=== PATIENT | male | born 1975 | race Caucasian/White ===

== ENCOUNTER → 2020-10-01 | Outpatient (CLI) | payer BC, OTHER ==
[~2020-10-01] MED LIST: BACTRIM DS TAB1 EACH PO; BACTROBAN CREAM15 GM TOP; CLEOCIN HCL300 MG PO; ECOTRIN81 MG PO; GLUCOPHAGE1000 MG PO; JANUVIA50 MG PO; LOPRESSOR 25 MG25 MG PO; PRINIVIL10 MG PO; TRESIBA FL100 UNIT/1 SQ; TRICOR145 MG PO
[2020-10-01 10:54] LABS: HEMOGLOBIN 16.4 gm/dl (14.0-17.5); RED BLOOD COUNT 5.78 M/UL (4.20-5.50); WHITE BLOOD COUNT 9.8 K/UL (4.5-11.0)
[2020-10-01 11:25] LABS: BUN/CREATININE RATIO 20 (0-10)
[2020-10-02 10:12] LABS: CREATININE, URINE 68.9 mg/dL (Not Estab.)
== END ==
LOC: LAB 08:53
PROVIDERS: Family Medicine
DX: E11.65 Type 2 diabetes mellitus with hyperglycemia (principal); E78.2 Mixed hyperlipidemia
CPT/HCPCS: 80053; 80061; 82043; 82570; 85027

== ENCOUNTER → 2020-11-10 | Outpatient (CLI) | payer BC, OTHER | LOC: EXRD 11-02 09:45 | DX: R79.89 Other specified abnormal findings of blood chemistry (principal); I10 Essential (primary) hypertension; E78.2 Mixed hyperlipidemia; E11.65 Type 2 diabetes mellitus with hyperglycemia; K82.4 Cholesterolosis of gallbladder; K76.0 Fatty (change of) liver, not elsewhere classified | CPT/HCPCS: 76700 ==

== ENCOUNTER 2021-04-21 15:12 | Observation (INO) | payer OTHER ==
[~2021-04-21] VITALS: Ht 175.3 cm; Wt 105.2 kg
[~2021-04-21 15:12] MED LIST changes: -PRINIVIL10 MG PO; +PRINIVIL20 MG PO
[2021-04-21 17:01] LABS: RED BLOOD COUNT 5.72 M/UL (4.20-5.50); WHITE BLOOD COUNT 11.1 K/UL (4.5-11.0)
[2021-04-21 17:32] LABS: BUN/CREATININE RATIO 18 (0-10)
[2021-04-22] MEDS ORDERED: ASPIRIN EC81 MG PO (02:07)
[2021-04-22] MEDS ORDERED: GLUCOPHAGE 500500 MG PO (02:07)
[2021-04-22] MEDS ORDERED: JARDIANCE10 MG PO (02:07)
[2021-04-22] MEDS ORDERED: VASCEPA1 GM PO (02:09)
[2021-04-22] MEDS ORDERED: ELIQUIS5 MG PO (12:15)
[2021-04-22] MEDS ORDERED: ELIQUIS 2.5 MG2.5 MG PO (12:15)
[2021-04-22] MEDS ORDERED: ELIQUIS 5 MG TAB5 MG PO (12:20)
[2021-04-22] MEDS ORDERED: TOUJEO MAX300 UNIT/1 SQ (16:49)
[2021-04-22] MEDS ORDERED: HUMALOG 10100 UNITS/ SC (18:00)
[2021-04-22] MEDS ORDERED: DEX4 GLUCOSE4 GM PO (18:00)
== END 2021-04-22 18:30 | disposition home or self-care (01) ==
LOC: ER1 15:12 → M/S 23:35 → CDU 23:35 → M/S 23:35
PROVIDERS: Physician Assistant; ADMIT Internal Medicine
DX: S00.83XA Contusion of other part of head, initial encounter (principal); I82.431 Acute embolism and thrombosis of right popliteal vein; I82.441 Acute embolism and thrombosis of right tibial vein; V49.60XA Unspecified car occupant injured in collision with unspecified motor vehicles in traffic accident, initial encounter; I26.99 Other pulmonary embolism without acute cor pulmonale; E11.65 Type 2 diabetes mellitus with hyperglycemia; R60.0 Localized edema; Z79.82 Long term (current) use of aspirin; Z20.822 Contact with and (suspected) exposure to COVID-19; E78.5 Hyperlipidemia, unspecified; Z79.84 Long term (current) use of oral hypoglycemic drugs; Z79.01 Long term (current) use of anticoagulants; Z88.5 Allergy status to narcotic agent; Z88.6 Allergy status to analgesic agent; I11.9 Hypertensive heart disease without heart failure; I07.1 Rheumatic tricuspid insufficiency
CPT/HCPCS: ECHO; 36415; 70450; 71260; 80053; 82550; 82553; 82962; 83036; 83874; 83880; 84484; 85025; 85610; 85730; 93005; 93306; 93970; G0378; J1644; Q9967; U0002

== ENCOUNTER → 2021-05-29 | Outpatient (CLI) | payer OTHER, BC ==
[~2021-05-29] MED LIST changes: +ASPIRIN EC81 MG PO; +DEX4 GLUCOSE4 GM PO; +ELIQUIS 2.5 MG2.5 MG PO; +ELIQUIS 5 MG TAB5 MG PO; +ELIQUIS5 MG PO; +GLUCOPHAGE 500500 MG PO; +HUMALOG 10100 UNITS/ SC; +JARDIANCE10 MG PO; +TOUJEO MAX300 UNIT/1 SQ; +VASCEPA1 GM PO
[2021-05-29 10:03] LABS: BUN/CREATININE RATIO 27 (0-10)
[2021-05-30 07:12] LABS: HBSAG SCREEN Negative (Negative); HEP A AB, IGM Negative (Negative); HEP B CORE AB, IGM Negative (Negative); HEP C VIRUS AB <0.1 (0.0-0.9)
[2021-05-30 14:14] LABS: MITOCHONDRIAL (M2) ANTIBODY <20.0 Units (0.0-20.0)
== END ==
LOC: LAB 08:20
PROVIDERS: Family Medicine
DX: I10 Essential (primary) hypertension (principal); M54.6 Pain in thoracic spine; R79.89 Other specified abnormal findings of blood chemistry; E78.2 Mixed hyperlipidemia; E11.9 Type 2 diabetes mellitus without complications; V89.2XXA Person injured in unspecified motor-vehicle accident, traffic, initial encounter; Z79.4 Long term (current) use of insulin
CPT/HCPCS: 36415; 72072; 80053; 80074; 82728; 83540; 83550

== ENCOUNTER → 2021-09-25 | Outpatient (CLI) | payer BC ==
[2021-09-25 09:50] LABS: HEMOGLOBIN 14.9 gm/dl (14.0-17.5); RED BLOOD COUNT 5.35 M/UL (4.20-5.50); WHITE BLOOD COUNT 9.3 K/UL (4.5-11.0)
[2021-09-25 10:18] LABS: BUN/CREATININE RATIO 14 (0-10)
[2021-09-26 11:11] LABS: CREATININE, URINE 116.7 mg/dL (Not Estab.)
== END ==
LOC: LAB 09:09
PROVIDERS: Family Medicine
DX: R60.9 Edema, unspecified (principal); I10 Essential (primary) hypertension; E78.2 Mixed hyperlipidemia; E11.9 Type 2 diabetes mellitus without complications; Z79.4 Long term (current) use of insulin
CPT/HCPCS: 36415; 80053; 80061; 82043; 82570; 85027

== ENCOUNTER → 2021-09-29 | Outpatient (CLI) | payer BC ==
[2021-09-30 07:11] LABS: A/G RATIO 1.5 (1.2-2.2); ALKALINE PHOSPHATASE, S 169 IU/L (44-121); ALT (SGPT) 42 IU/L (0-44); AST (SGOT) 26 IU/L (0-40); BILIRUBIN, TOTAL 0.3 mg/dL (0.0-1.2); BUN 17 mg/dL (6-24); BUN/CREATININE RATIO 21 (9-20); CALCIUM, SERUM 9.2 mg/dL (8.7-10.2); CARBON DIOXIDE, TOTAL 20 mmol/L (20-29); CHLORIDE, SERUM 104 mmol/L (96-106); CREATININE, SERUM 0.82 mg/dL (0.76-1.27); GLOBULIN, TOTAL 2.3 g/dL (1.5-4.5); GLUCOSE, SERUM 340 mg/dL (65-99); POTASSIUM, SERUM 4.6 mmol/L (3.5-5.2); PROTEIN, TOTAL, SERUM 5.7 g/dL (6.0-8.5); SODIUM, SERUM 139 mmol/L (134-144)
[2021-09-30 15:14] LABS: MITOCHONDRIAL (M2) ANTIBODY <20.0 Units (0.0-20.0)
== END ==
LOC: LAB 09:50
PROVIDERS: Family Medicine
DX: R79.89 Other specified abnormal findings of blood chemistry (principal)
CPT/HCPCS: 36415; 71046; 80053

== ENCOUNTER → 2021-10-17 | Outpatient (CLI) | payer BC | END | disposition home or self-care (01) | LOC: KOH-I 10-10 08:30 | DX: K82.4 Cholesterolosis of gallbladder (principal); R79.89 Other specified abnormal findings of blood chemistry; K76.0 Fatty (change of) liver, not elsewhere classified | CPT/HCPCS: 76700 ==

== ENCOUNTER → 2022-01-18 | Outpatient (CLI) | payer BC | LOC: HEART 5 12:45 | DX: U07.1 COVID-19 (principal); R06.02 Shortness of breath; I07.1 Rheumatic tricuspid insufficiency | CPT/HCPCS: 93306 ==